=== PATIENT | female | born 1950 | race Caucasian/White ===

== ENCOUNTER → 2017-03-13 13:37 | Outpatient (CLI) | payer OTHER | END | disposition home or self-care (01) | LOC: LAB 13:37 | DX: J11.1 Influenza due to unidentified influenza virus with other respiratory manifestations (principal) ==

== ENCOUNTER → 2017-03-23 09:26 | Outpatient (CLI) | payer OTHER | END | disposition home or self-care (01) | LOC: LAB 09:26 | DX: E03.8 Other specified hypothyroidism (principal); E78.2 Mixed hyperlipidemia; M81.0 Age-related osteoporosis without current pathological fracture; R73.01 Impaired fasting glucose; E55.9 Vitamin D deficiency, unspecified; E56.8 Deficiency of other vitamins ==

== ENCOUNTER 2022-04-14 09:50 | Outpatient (CLI) | payer OTHER | END 2022-04-14 09:57 | disposition home or self-care (01) | LOC: RAD 09:50 | PROVIDERS: ATTEND Internal Medicine Rheumatology | DX: N15.8 Other specified renal tubulo-interstitial diseases (principal); M25.562 Pain in left knee; M25.561 Pain in right knee ==